=== PATIENT | male | born 1975 | race Caucasian/White ===

== ENCOUNTER 2021-12-16 16:58 | Emergency (ER) | payer BC, SELFPAY ==
--- NOTE | ~2021-12-16 | XR_ITS ---
EXAMINATION: XR CHEST CLINICAL INFORMATION: Dyspnea COMPARISON: None TECHNIQUE: Frontal view of the chest was obtained. FINDINGS: Minimal linear opacity at the right base medially likely atelectasis or scarring. No definite acute significant abnormality is noted involving the heart, lungs, mediastinum, bony thorax or soft tissues. XR/XR chest 1V IMPRESSION: 1. No acute disease. 2. Minimal linear opacity right base likely atelectasis or scarring.
[2021-12-16 18:40] VITALS: BP 171/134; PULSE 105; RESP 20; TEMP 38.2; O2SAT 95; BMI 36.4
[2021-12-16] MEDS: Acetaminophen 325 MG TABLET 650 MG PO (18:49)
[2021-12-16 19:15] LABS: COVID-19 Test Negative (Negative); IDNOW Serial# 16C4AD1C
[2021-12-16 19:16] LABS: Influenza A Negative (Negative); Influenza B2 Negative (Negative)
[2021-12-16 22:55] VITALS: BP 160/99; PULSE 85; RESP 16; TEMP 37.1; O2SAT 96
[2021-12-16] MEDS: predniSONE 20 MG TABLET 60 MG PO (23:01)
--- NOTE | 2021-12-16 23:07 | ED.SOB ---
HPI - SOB/Dyspnea General Chief Complaint: Upper Respiratory Symptoms Stated Complaint: Asthma Time Seen by Provider: 12/16/21 22:54 Source: patient Mode of arrival: ambulatory Limitations: no limitations History of Present Illness HPI Narrative: Patient history of asthma smoker been feeling short of breath since yesterday got worse today with increased wheezing and dry fever no chills did home testing for COVID was negative. No chest pain Related Data Previous Rx's Medication Instructions Recorded prednisone 20 mg tablet 40 mg PO DAILY #10 tabs 12/16/21 benzonatate 200 mg capsule 200 mg PO TID PRN cough #20 caps 12/17/21 Allergies Allergy/AdvReac Type Severity Reaction Status Date / Time Penicillins Allergy Swelling Verified 12/16/21 18:39 Review of Systems Review of Systems: Yes all other systems are reviewed and are negative [facility] Social History Social History Advance Directives: No Advance Directives Information Provided: No Physical Exam Vital Signs: Vital Signs: Last Vital Signs Temp 98.7 F 12/16/21 22:55 Pulse 85 12/16/21 22:55 Resp 16 12/16/21 22:55 BP 160/99 H 12/16/21 22:55 Pulse Ox 96 12/16/21 22:55 O2 Del Method 12/16/21 22:55 BMI result Body Mass Index 36.4 Appearance: Alert. Oriented X3. No acute distress. ENT: Pharynx normal. Oral Mucosa moist Neck: Normal inspection. Neck supple. CVS: Normal heart rate and rhythm. Pulses normal. Respiratory: No respiratory distress. Equal air entry bilateral, bilateral wheezing Abdomen: Soft and nontender. Bowel sounds are present, no mass palpable, no CVA tenderness Skin: Skin warm and dry. Normal skin color. Normal skin turgor. Extremities: No lower extremity edema. No calf tenderness Neuro: Oriented X 3. No motor deficit. MDM - SOB/Dyspnea MDM Narrative Medical decision making narrative: Patient has asthma chest x-ray negative COVID negative will discharge patient home on prednisone and albuterol Differential Diagnosis Differential diagnosis: Likely asthma with exacerbation Lab Data Attestation: I reviewed the patient's lab results. Labs: Lab Results 12/16/21 12/16/21 Range/Units 18:49 18:49 COVID-19 (GINA) Negative (Negative) COVID-19 Clin Com See Note Influenza Type A (MEREDITH) Negative (Negative) Influenza Type B (MEREDITH) Negative (Negative) Influenza A & B Note See Note Discharge Plan Discharge Clinical Impression: Asthma Patient Disposition: Home, Self-Care Instructions: Asthma (ED) Additional Instructions: Continues nebulizing/inhaler treatment every 4-6 hours as needed Prednisone as advised Follow with PCP if not better Prescriptions: New prednisone 20 mg tablet 40 mg PO DAILY Qty: 10 0RF benzonatate 200 mg capsule 200 mg PO TID PRN (Reason: cough) Qty: 20 0RF Interventions: ED Discharge Assessment Last Done: 12/17/21 00:07 Discharge Date/Time: 12/17/21 00:07
[2021-12-16] MEDS: Albuterol Sulfate 5 MG, Albuterol/Iprat 2.5/0.5MG 3 ML 3 ML INHALE (23:15)
--- OUTSIDE RECORDS SUMMARY | 2021-12-16 23:44 | XMS_ITS ---
:1975 Author Care Team Providers Name Role Phone LANE WORKMAN PA-C Primary Care Provider [phone] Allergies Code Code System Name Reaction Severity Status Onset Penicillins ? ? Active 05/19/19 14 Medications Name Status Start Date Stop Date ? ? albuterol (refill) 90 mcg/actuation aerosol inhaler Unknown ? Not available PRN azithromycin 250 mg tablet Active ? Not a vailable azithromycin 500 mg tablet Completed 12/11/201012/16 DAILY colchicine 0.6 mg tablet Active ? Not franci ilable cyclobenzaprine 10 mg tablet Active 12/11/2010 Not available THREE TIMES DAILY, NEEDED indomethacin 25 mg capsule Active ? Not a vailable TAKE 1 CAPSULE BY MOUTH THREE TIMES DAILY levetiracetam 500 mg tablet Active ? Not available TAKE 1 TABLET BY MOUTH TWICE DAILY metaxalone 800 mg tablet Active ? Not franci ilable metoprolol succinate ER 25 mg tablet,extended release 24 hr Acti ve ? Not available TAKE 1 TABLET BY MOUTH EVERY DAY montelukast 10 mg tablet Active ? Not franci ilable TAKE 1 TABLET BY MOUTH EVERY DAY prednisone 10 mg tablet Active ? Not avai lable prednisone 20 mg tablet Active ? Not avai lable Ventolin HFA 90 mcg/actuation aerosol inhaler Active ? Not available Notes: 05/18/2013: FLOVENT HFA, 220MC G/ACT (INHALATION AEROSOL)(ACTIVE): DIRECTION: TWO TIMES DAILY; STARTDATE: 0 10/23/2012; OXYCODONE HCL, 5MG (ORAL TABLET)(ACTIVE): DIRECTION: THREE TIMES DAILY, NEEDED; STARTDATE: 09/01/2009; METOPROLOL SUCCINATE ER, 25MG (ORAL TAB LET EXTENDED RELEASE 24 HOUR)(ACTIVE): DIRECTION: DAILY; STARTDATE: 05/18/2013; AZITHROMYCIN, 500MG (ORAL TABLET)(INACTIVE): DIRECTION: DAILY; STA RTDATE: 12/11/2010; STOPDATE: 12/16/2010; Problems Name Status Onset Date Source ? Palpitations Unknown 10/02/2012 ? Palpitations Unknown 10/02/2012 ? Palpitations Unknown 10/02/2012 ? Cough Unknown 10/02/2012 ? Cough Unknown 10/02/2012 ? Cough Unknown 10/02/2012 ? Impaired Fasting Glycemia Unknown 10/23/2012 ? Impaired Fasting Glycemia Unknown 10/23/2012 ? Impaired Fasting Glycemia Unknown 10/23/2012 ? Follow-up Encounter Unknown 10/23/2012 ? Follow-up Encounter Unknown 10/23/2012 ? Follow-up Encounter Unknown 10/23/2012 ? Chronic Rhinitis Unknown 02/08/2013 ? Chronic Rhinitis Unknown 02/08/2013 ? Chronic Rhinitis Unknown 02/08/2013 ? Hyperlipidemia Active 05/18/2013 ? Essential Hypertension Active 05/18/2013 ? Acute Pharyngitis Unknown 05/18/2013 ? 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 Asthma Active 05/18/2013 ? Seizure Active 05/18/2013 ? Increased Frequency of Urination Active 05/18/2013 ? Patient Status Finding Unknown 05/18/2013 ? Patient Status Finding Unknown 05/18/2013 ? Adult Health Examination Active 05/18/2013 ? Degeneration of Intervertebral Disc Active 05/18/2013 ? Gout Active ? Encounter Body Mass Index 30+ - Obesity Active ? En counter Epilepsy Active ? Encounter Low Back Pain Active ? Encounter Lumbosacral Neuritis Active ? Encounter Procedures Date Name Performed by ? ? Appendectomy Information not avai lable 08/07/2015 XR, Lumbosacral Spine, 2 or 3 View Infor mation not available Results Lab Results Date Name Specimen Result Interpretation Description Value Range Status Address ? 08/07/2015 CBC W/ Auto ? Wbc 7.4 K/mm3 (4.0-11.0) F inal [facility] Diff K/mm3 Reference Laboratori es: [address], [place] ? ? ? Rbc 5.22 M/mm3 (4.70-6.10) Final [facility] M/mm3 Reference Laborator[facility]: [address], [place] ? ? ? Hgb 16.5 gm/dL (14.0-18.0) Final [facility] gm/dL Reference Laboratori es: [address], [place] ? ? ? Hct 47.6 % (42.0-52.0) Final [facility] % Reference [facility]: [address], [place] ? ? ? Mcv 91.2 fL (80.0-94.0) Final [facility] fL Reference Laboratori es: [address], [place] ? ? ? Mch 31.6 pg (27.0-34.0) Final [facility] pg Reference Laboratori es: [address], [place] ? ? ? Mchc 34.7 % (33.0-37.0) Final [facility] % Reference [facility]: [address], [place] ? ? ? Plt 227 K/mm3 (150-460) Final [facility] K/mm3 Reference Laboratori es: [address], [place] ? ? ? RDW-SD 40.5 fL (<47.0) fL Final [facility] Reference Laboratori es: [address], [place] ? ? ? Mpv 10.7 fL (9.4-12.4) Final [facility] ate fL Reference Laboratori es: [address], [place] ? ? ? Automated 0.0 #/100 ? Final [facility] NRBC WBC's Reference Laboratori es: [address], [place] ? ? ? Abs. NRBC 0.0 K/mm3 ? Final [facility] Reference Laborator[facility]: [address], [place] ? ? ? Neut # 4.5 K/mm3 (1.3-7.0) Final [facility] K/mm3 Reference Laboratori es: [address], [place] ? ? ? Lymph # 1.9 K/mm3 (0.8-3.1) Final [facility] K/mm3 Reference Labor[facility]: [address], [place] ? ? ? [place]# 0.8 K/mm3 (0.4-1.3) Final [facility] K/mm3 Reference Laboratori es: [address], [place] ? ? ? Eo # 0.1 K/mm3 (0.0-0.4) Final [facility] K/mm3 Reference Laboratori es: [address], [place] ? ? ? Baso # 0.0 K/mm3 (0.0-0.1) Final [facility] K/mm3 Reference Laboratori es: [address], [place] ? ? ? Abs. Imm 0.0 K/mm3 ? Final [facility] Gran Reference Laborator[facility] es: [address], [place] ? ? ? Neut 60.3 % (44-76) % Final [facility] Reference Labor[facility]: [address], [place] ? ? ? Lymph 25.7 % (15-43) % Final [facility] Reference Laborator[facility]: [address], [place] ? ? High Monocyte 11.4 % (4.5-10.5) Final [facility] % Reference Laborator[facility]: [address], [place] ? ? ? Eo 1.9 % (0-6) % Final [facility] Reference Laboratori es: [address], [place] ? ? ? Baso 0.4 % (0-2) % Final [facility] Reference Laboratori es: [address], [place] ? ? ? Imm Gran 0.3 % (0.0-0.6) % Final [facility] Reference [facility]: [address], [place] 08/07/2015 ESR ? Sedimentat 11 mm/HR (0-15) Final [facility] (Erythrocyte ion Rate mm/HR Re ference Sedimentatio Labo ratories: n Rate), [address], [place] 08/07/2015 ALT (Alanine ? Alt 37 U/L (0-41) U/L Fin al [facility] Aminotransfe Refe renradha rase), Serum Labo ratories: or Plasma [address], [place] 08/07/2015 AST/SGOT ? Ast 27 U/L (0-38) U/L Final [facility] (Aspartate Refere nce Aminotransfe Labo ratories: rase), Serum [address], [place] 08/07/2015 BMP, Serum ? Glucose 75 mg/dL (70-99) Renee l [facility] or Plasma mg/dL Referen ce Laboratori es: [address], [place] ? ? ? Bun 17 mg/dL (6-20) Final [facility] mg/dL Reference Laboratori es: [address], [place] ? ? ? Creatinine 1.0 mg/dL (0.7-1.2) Final [facility] mg/dL Reference Laboratori es: [address], [place] ? ? ? Sodium 143 mmol/L (133-145) Final [facility] mmol/L Reference Laborator[facility]: [address], [place] ? ? ? Potassium 5.0 mmol/L (3.6-5.2) Final [facility] mmol/L Reference Laboratori es: [address], [place] ? ? ? Chloride 104 mmol/L (98-107) Final [facility] mmol/L Reference Laborator[facility]: [address], [place] ? ? ? Bicarbonat 28 mmol/L (22-29) Final [facility] e mmol/L Reference Laboratori es: [address], [place] ? ? ? Anion Gap 11 (4-17) Final [facility] Reference [facility]: [address], [place] ? ? ? Calcium 9.6 mg/dL (8.6-10.5) Final [facility] mg/dL Reference Laboratori es: [address], [place] ? ? ? Est GFR >60 ? Final [facility] Non mL/min/1.73 Reference [place] [facility] Laborato alena: [address], [place] ? ? ? Est GFR >60 ? Final [facility] mL/min/1.73 Refe rence [place] [facility] Laborato alena: [address], [place] 08/07/2015 Lipid Panel, High Cholestero 205 mg/dL (<200) Final [facility] Serum l, Total mg/dL Referenc e Laboratori es: [address], [place] ? ? High Triglyceri 428 mg/dL (<150) Final [facility] de mg/dL Reference Laborator[facility]: [address], [place] ? ? Low HDL Chol 25 mg/dL (>39) mg/dL Final [facility] Reference Laborator[facility]: [address], [place] ? ? ? LDL ? (0-130) Final [facility] Cholesterol mg/dL Refer ence , Laboratori es: Calculated [address], [place] ? ? High Non HDL 180 mg/dL (<160) Final [facility] Cholesterol mg/dL Refer ence (Calc) Laboratori es: [address], [place] 05/18/2013 Streptococcu ? Specimen throat swab ? Final [facility] s Group a, Description R eference Culture, Laborato alena: Throat [address], [place] ? ? ? Special none ? Final [facility] Requests Referenc e Laboratori es: [address], [place] ? ? ? Culture no group A ? Final [facility] beta Reference hemolytic Laborat ories: streptococci [address], [place] ? ? ? Report final ? Final [facility] Status 05/20/2013 Refere nce Laboratori es: [address], [place] 10/23/2012 Lipid Panel, High Cholestero 218 mg/dL (0-200 ) Final [facility] Serum l, Total mg/dL Referenc e Laboratori es: [address], [place] ? ? High Triglyceri 373 mg/dL (0-150) Final [facility] de mg/dL Reference Laboratori es: [address], [place] ? ? Low HDL Chol 34 mg/dL (>40) mg/dL Final [facility] Reference Laboratori es: [address], [place] ? ? ? LDL 109 mg/dL (0-130) Final [facility] Cholesterol mg/dL Refer ence , Laboratori es: Calculated [address], [place] ? ? High Non HDL 184 mg/dL (0-160) Final [facility] Cholesterol mg/dL Refer ence (Calc) Laboratori es: [address], [place] 10/23/2012 Hepatic ? Bilirubin, 0.5 mg/dL (0-1.2) Fin al [facility] Function total mg/dL Referenc e Panel, Serum Labo ratories: [address], [place] ? ? ? Bilirubin, 0.1 mg/dL (0-0.3) Final [facility] Direct mg/dL Reference Laboratori es: [address], [place] ? ? ? Indirect 0.4 mg/dL (0.0-0.7) Final [facility] Bilirubin mg/dL Referen ce Laboratori es: [address], [place] ? ? ? Albumin 4.8 gm/dL (3.4-4.8) Final [facility] gm/dL Reference Laborator[facility] es: [address], [place] ? ? ? Ast 25 U/L (0-38) U/L Final [facility] Reference [facility]: [address], [place] ? ? ? Alt 33 U/L (0-41) U/L Final [facility] Reference [facility]: [address], [place] ? ? ? Alk Phos 68 U/L (40-129) Final [facility] U/L Reference Laborator[facility]: [address], [place] ? ? ? Total 7.3 gm/dL (6.2-8.2) Final [facility] Protein gm/dL Reference Laboratori es: [address], [place] 10/23/2012 BMP, Serum ? Glucose 88 mg/dL (70-99) Renee l [facility] or Plasma mg/dL Referen ce Laboratori es: [address], [place] ? ? ? Bun 12 mg/dL (6-20) Final [facility] mg/dL Reference Laboratori es: [address], [place] ? ? ? Creatinine 0.9 mg/dL (0.7-1.2) Final [facility] mg/dL Reference Laboratori es: [address], [place] ? ? ? Sodium 143 mmol/L (133-145) Final [facility] mmol/L Reference Laboratori [facility]: [address], [place] ? ? ? Potassium 5.0 mmol/L (3.6-5.2) Final [facility] mmol/L Reference Laboratori es: [address], [place] ? ? ? Chloride 102 mmol/L (98-107) Final [facility] mmol/L Reference Laboratori es: [address], [place] ? ? ? Bicarbonat 29 mmol/L (22-29) Final [facility] e mmol/L Reference Laboratori es: [address], [place] ? ? ? Anion Gap 12 (4-17) Final [facility] Reference Labor[facility]: [address], [place] ? ? ? Calcium 9.9 mg/dL (8.6-10.5) Final [facility] mg/dL Reference Laboratori es: [address], [place] ? ? ? Est GFR >60 ? Final [facility] Non mL/min/1.73 Reference [place] [facility] Labor[facility]: [address], [place] ? ? ? Est GFR >60 ? Final [facility] mL/min/1.73 Refe rence [place] [facility] Labor[facility]: [address], [place] 10/23/2012 Urinalysis, ? Appear/col ? ? Fin al [facility] Complete or Referenc e Laboratori es: [address], [place] ? ? ? Sp. 1.014 (1.002-1.03 Final [facility] [place] 0) Reference Laboratori es: [address], [place] ? ? ? Urine pH 7.0 (4.0-8.0) Final [facility] Reference Laboratori es: [address], [place] ? ? ? Urine negative (neg) Final [facility] Albumin Reference Laboratori es: [address], [place] ? ? ? Urine negative (neg) Final [facility] Glucose Reference Laboratori es: [address], [place] ? ? ? Urine negative (neg) Final [facility] Ketones Reference Laboratori es: [address], [place] ? ? ? Urine negative (neg) Final [facility] Bilirubin Referen ce Laboratori es: [address], [place] ? ? ? Urine negative (neg) Final [facility] Hemoglobn Referen ce Laboratori es: [address], [place] ? ? ? Urine negative (neg) Final [facility] Nitrite Reference Laboratori es: [address], [place] ? ? ? Urine negative (neg) Final [facility] Leukocyte Referen ce Laboratori es: [address], [place] ? ? ? Urobilinog normal mg/dL (norm) Final [facility] en mg/dL Reference Laboratori es: [address], [place] ? ? ? Urine <1 /hpf (0-5) /hpf Final [facility] WBC's Reference Laboratori es: [address], [place] ? ? ? Urine none seen (<3) /hpf Final [facility] RBC's /hpf Reference Laboratori es: [address], [place] ? ? ? Mucus slight /lpf ? Final [facility] Reference Laborator[facility]: [address], [place] 10/23/2012 CBC W/ Auto ? Wbc 9.3 K/mm3 (4.0-11.0) F inal [facility] Diff K/mm3 Reference Laboratori es: [address], [place] ? ? ? Rbc 4.95 M/mm3 (4.70-6.10) Final [facility] M/mm3 Reference Laboratori es: [address], [place] ? ? ? Hgb 16.0 gm/dL (14.0-18.0) Final [facility] gm/dL Reference Laboratori es: [address], [place] ? ? ? Hct 44.8 % (42.0-52.0) Final [facility] % Reference Laborator[facility]: [address], [place] ? ? ? Mcv 90.5 fL (80.0-94.0) Final [facility] fL Reference Laboratori es: [address], [place] ? ? ? Mch 32.3 pg (27.0-34.0) Final [facility] pg Reference Laboratori es: [address], [place] ? ? ? Mchc 35.7 % (33.0-37.0) Final [facility] % Reference Laborator[facility]: [address], [place] ? ? ? Rdw 12.9 % (11.6-14.8) Final [facility] % Reference Laborator[facility]: [address], [place] ? ? ? Plt 208 K/mm3 (150-460) Final [facility] K/mm3 Reference Laboratori es: [address], [place] ? ? ? Mpv 11.2 fL (9.4-12.4) Final [facility] fL Reference Laborator[facility]: [address], [place] ? ? ? Neut 63.6 % (44-76) % Final [facility] Reference Laborator[facility]: [address], [place] ? ? ? Lymph 22.8 % (15-43) % Final [facility] Reference Laborator[facility] es: [address], [place] ? ? ? Monocyte 8.5 % (4.5-10.5) Final [facility] % Reference Laborator[facility]: [address], [place] ? ? ? Eo 4.8 % (0-6) % Final [facility] Reference Laboratori es: [address], [place] ? ? ? Baso 0.3 % (0-2) % Final [facility] Reference Laboratori es: [address], [place] ? ? ? Neut # 5.9 K/mm3 (1.3-7.0) Final [facility] K/mm3 Reference Laboratori es: [address], [place] ? ? ? Lymph # 2.1 K/mm3 (0.8-3.1) Final [facility] K/mm3 Reference Laborator[facility]: [address], [place] ? ? ? [place]# 0.8 K/mm3 (0.4-1.3) Final [facility] K/mm3 Reference Laboratori es: [address], [place] ? ? High Eo # 0.5 K/mm3 (0.0-0.4) Final [facility] K/mm3 Reference Laboratori es: [address], [place] ? ? ? Baso # 0.0 K/mm3 (0.0-0.1) Final [facility] K/mm3 Reference Laboratori es: [address], [place] Past Encounters None recorded. Social History Tobacco Smoking Status Former Smoker Vaccine List Vaccine Type pneumococcal polysaccharide PPV23 09/30/2012 Plan of Care Reminders Provider Appointments None recorded. ? ? Lab None recorded. ? ? Referral None recorded. ? ? Procedures None recorded. ? ? Surgeries None recorded. ? ? Imaging None recorded. ? ? Vitals 08/07/2015 10:00AM UV30 Height Weight BMI Blood Pressure 6 ft 1 in 265 lbs 35 kg/m2 144/82 mm[Hg] 10/04/2014 11:00AM URGENT Height Weight BMI Blood Pressure 6 ft 1 in 274 lbs 9.6 oz 36.2 kg/m2 129/80 mm[Hg] 05/18/2013 Height Weight Blood Pressure 6 ft 1 in 268 lbs 118/70 mm[Hg] 02/08/2013 Height Weight Blood Pressure 6 ft 1 in 262 lbs 155/84 mm[Hg] 10/23/2012 Height Weight Blood Pressure 6 ft 1 in 256 lbs 132/78 mm[Hg] 10/02/2012 Height Weight Blood Pressure 6 ft 1 in 250 lbs 147/97 mm[Hg] 12/11/2010 Height Weight Blood Pressure 6 ft 1 in 238 lbs 128/80 mm[Hg] 09/01/2009 Weight Blood Pressure 240 lbs 138/86 mm[Hg] 05/30/2009 Height Weight Blood Pressure 6 ft 1 in 237 lbs 122/80 mm[Hg]
== END 2021-12-17 00:07 | disposition home or self-care (01) ==
PROVIDERS: Emergency Provider Internal Medicine; PCP Internal Medicine
DX: J45.909 Unspecified asthma, uncomplicated (principal); R06.00 Dyspnea, unspecified; Z20.822 Contact with and (suspected) exposure to COVID-19; Z79.899 Other long term (current) drug therapy
CPT/HCPCS: 71045; 87502; 87635; 94640; 99284